=== PATIENT | male | born 1995 | race Caucasian/White ===

== ENCOUNTER 2017-06-09 19:18 | Emergency (ER) | payer SELFPAY ==
[2017-06-09 19:43] VITALS: BP 135/83
--- NOTE | 2017-06-09 19:53 | EDM.PDOC ---
ED HPI GENERAL MEDICAL PROBLEM - General Chief Complaint: ENT Problem Stated Complaint: foreign body right eye Time Seen by Provider: 06/09/17 19:53 Source of Information: Reports: Patient, RN, RN Notes Reviewed History Limitations: Reports: No Limitations - History of Present Illness INITIAL COMMENTS - FREE TEXT/NARRATIVE: Patient presents to the ED at [facility] complaining of right eye foreign body. Patient states he was working on his truck by the exhaust. Dust and particles blew into the right eye. He states he used water to flush any particles out, but states his central right eye vision is slightly blurry. No other complaints. This is not work related incident. Onset: Today Onset Date: 06/09/17 Right eye Pain Score (Numeric/FACES): 3 - Related Data Allergies Allergy/AdvReac Type Severity Reaction Status Date / Time No Known Allergies Allergy Verified 06/09/17 19:42 Home Meds: Home Meds Cetirizine [ZyrTEC] 10 mg PO DAILY 06/09/17 [History] Past Medical History HEENT History: Reports: Allergic Rhinitis Other HEENT History: seasonal allergies ED ROS GENERAL - Review of Systems Review Of Systems: See Below Constitutional: Reports: No Symptoms HEENT: Reports: Vision Change (right eye). Denies: Eye Pain Respiratory: Reports: No Symptoms Cardiovascular: Reports: No Symptoms Skin: Reports: No Symptoms Neurological: Reports: No Symptoms ED EXAM GENERAL W FULL EYE - Physical Exam Exam: See Below Exam Limited By: No Limitations General Appearance: Alert, No Apparent Distress Eye Exam: Right Eye: Corneal Abrasion (no foreign body), Vision Changes (blurry) , Left Eye: Normal Inspection, Bilateral Eye: PERRL Visual Acuity (R) 20/: 30 Visual Acuity (L) 20/: 20 With Correction: No Eyelids: Bilateral: Normal Appearance Conjunctiva & Sclera: Bilateral: Normal Appearance Cornea Exam: Right: Corneal Abrasion, Left: Normal Appearance Extraocular Movements: Bilateral: Intact Pupils: Normal Accommodation Pupillary Size: Bilateral: 4 mm Pupillary Reaction: Bilateral: Brisk Anterior Chamber: Bilateral: Normal Appearance Posterior Chamber: Bilateral: Normal Funduscopic Respiratory/Chest: No Respiratory Distress, Lungs Clear, Normal Breath Sounds Cardiovascular: Regular Rate, Rhythm Neurological: Alert, Oriented Skin Exam: Warm, Dry, Intact, Normal Color, No Rash ED EYE w/ Add Procedure - Eye Procedure Alcaine Drops Administered: Yes Eye FB Removal: Other (No foreign body found on exam with slip lamp and stain) Progress: No foreign body; right corneal abrasion seen on slit lamp exam of right eye Course - Vital Signs Last Recorded V/S: Last Vital Signs Temp 37.2 C 06/09/17 19:20 Pulse 76 06/09/17 19:20 Resp 16 06/09/17 19:20 BP 135/83 06/09/17 19:20 Pulse Ox 98 06/09/17 19:20 - Orders/Labs/Meds Meds: Medications Discontinued Medications Generic Name Dose Route Start Last Admin Trade Name Kori PRN Reason Stop Dose Admin Fluorescein Sodium 1 mg 06/09/17 19:58 Ful-Diana EYERT 06/09/17 19:59 ONETIME ONE Tetracaine HCl 1 ml 06/09/17 19:55 06/09/17 19:58 Tetracaine 0.5% Steri-Unit Angella EYERT 06/09/17 19:56 4 drop ONETIME ONE Administration Departure - Departure Time of Disposition: 20:09 Disposition: Home, Self-Care 01 Condition: Good Clinical Impression: Corneal abrasion, right Qualifiers: Encounter type: initial encounter Qualified Code(s): S05.01XA - Injury of conjunctiva and corneal abrasion without foreign body, right eye, initial encounter - Discharge Information Instructions: Corneal Abrasion Forms: ED Department Discharge Additional Instructions: 1. Stay well hydrated and rest 2. Use drops for the full week, even if symptoms are better 3. Do not rub or irritate either eye as much as possible 4. Do not wear contact lenses while using drops 5. Wear protective eyewear 6. See your Primary as symptoms warrant - Problem List Review Problem List Initiated/Reviewed/Updated: Yes
[2017-06-09] MEDS ORDERED: Tetracaine HCl/PF 0.5% 4 ML Bottle EYERT ONE (19:55)
[2017-06-09] MEDS ORDERED: Fluorescein 1 MG Ophth Strip EYERT ONE (19:58)
[2017-06-09] MEDS ORDERED: Take Home: Gentamicin 0.3% Ophth Soln 5 ML, 1 Bottle Pack EYEBOTH ONE (20:10)
== END 2017-06-09 20:19 | disposition home or self-care (01) ==
LOC: VM.ED 19:18
DX: S05.01XA Injury of conjunctiva and corneal abrasion without foreign body, right eye, initial encounter (principal); X58.XXXA Exposure to other specified factors, initial encounter
CPT/HCPCS: 99283; A9270